=== PATIENT | male | born 1995 | race Caucasian/White ===

== ENCOUNTER 2022-07-16 16:03 | Emergency (ER) | payer BC, SELFPAY ==
[2022-07-16 16:11] VITALS: BP 141/81; PULSE 99; RESP 18; TEMP 36.4; O2SAT 99
--- NOTE | 2022-07-16 16:30 | ED.EAR ---
HPI - Ear Problem General Chief complaint: Ear Stated complaint: Ringing in right ear Time Seen by Provider: 07/16/22 16:30 Source: patient, RN notes reviewed and old records reviewed Mode of arrival: ambulatory Limitations: no limitations History of Present Illness HPI Narrative: 26 year old male who presents to [facility] [place] [facility] care with complaints of ringing in his right ear and discomfort for the past 3 days. 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 Patient denies any drainage from his ears, has not taken any OTC medications for his complaints. Patient denies any cold symptoms or any fevers. MD Complaint: ear pain and other (ringing in right ear) Location: right ear Duration: constant Discharge from ear: Reports no Treatment prior to arrival: other (wears ear plugs at work) Related Data Allergies Allergy/AdvReac Type Severity Reaction Status Date / Time No Known Allergies Allergy Verified 07/16/22 16:20 Review of Systems Review of Systems: CONSTITUTIONAL: Denies malaise, chills, sweats, or fever. EYES: Denies visual changes, redness, or discharge. ENT: Reports no rhinorrhea, congestion, sinus pain,right otalgia with tinnitus, no sore throat. CARDIOVASCULAR: Denies chest pain, palpitations, or edema. RESPIRATORY: Reports no cough.? Denies dyspnea. GASTROINTESTINAL: Denies abdominal pain, nausea, vomiting, diarrhea SKIN: Denies rash or itching. MUSCULOSKELETAL: Denies myalgia. NEUROLOGIC: Denies headache. All systems reviewed & are unremarkable except as noted in HPI and below PMFSH Social History Social History (Updated 07/18/22 @ 11:02 by Sarah Weinberg NP) Smoking status: Current some day smoker Tobacco type: cigarettes Alcohol intake: current Alcohol use details: social Substance use type: does not use Gender identity (if verbalized by the patient): Male Comments At time of signature, agree with nursing past medical, surgical, social and family history. There is no relevant family history pertinent to the presenting complaint Exam Narrative: GENERAL: Well-appearing, well-nourished, and in no acute distress. HEAD: Normocephalic EYES: PERRLA, conjunctivae clear ENT: Nares clear, turbinates edematous and erythematous, clear discharge. Mucous membranes moist. TM pearly borja with dull light reflex bilaterally;some soft wax in ear canals,, area of irritation and redness of right ear canal,no tragal tenderness. Oropharynx erythematous without lesions. Tonsils not enlarged and without exudate, no drooling, no hoarseness, no trismus, uvula midline. NECK: Supple. No lymphadenopathy CHEST: Clear to auscultation, breath sounds equal. No wheezing, rhonchi, rales, or stridor. No respiratory distress, speaks in full sentences. HEART: Regular rate and rhythm. No murmur heard. SKIN: Warm, dry, no rash. NEURO: Alert and oriented x3. PSYCH: Normal mood and affect Course Course Emergency Course: Patient is aware of diagnosis, understands and agrees to treatment plan.? Anticipatory guidance given.? Patient agrees to follow-up as directed and is aware of reasons to seek care at the emergency department. Portions of this record may have been created with voice recognition software Level of Care: Express Care Visit Vital Signs Vital signs: Vital Signs Temperature 36.4 C L 07/16/22 16:11 Pulse Rate 99 07/16/22 16:11 Respiratory Rate 18 07/16/22 16:11 Blood Pressure 141/81 H 07/16/22 16:11 Pulse Oximetry 99 07/16/22 16:11 Oxygen Delivery Room Air 07/16/22 16:11 Temperature 36.4 C L 07/16/22 16:11 Pulse Rate 99 07/16/22 16:11 Respiratory Rate 18 07/16/22 16:11 Blood Pressure 141/81 H 07/16/22 16:11 Pulse Oximetry 99 07/16/22 16:11 Oxygen Delivery Room Air 07/16/22 16:11 Reviewed Medical Decision Making Differential Diagnosis Differential Diagnosis: r
== END 2022-07-16 16:45 | disposition home or self-care (01) ==
PROVIDERS: Emergency Provider Registered Nurse
DX: H60.91 Unspecified otitis externa, right ear (principal); H93.11 Tinnitus, right ear; F17.210 Nicotine dependence, cigarettes, uncomplicated
CPT/HCPCS: 99213; G0463

== ENCOUNTER 2022-09-17 13:49 | Emergency (ER) | payer BC, SELFPAY ==
[2022-09-17 13:54] VITALS: BP 127/70; PULSE 82; RESP 16; TEMP 36.2; O2SAT 99
[2022-09-17 13:58] VITALS: BP 127/70; PULSE 82; RESP 16; TEMP 36.2; O2SAT 99
--- NOTE | 2022-09-17 14:06 | ED.BACK ---
HPI - Back Pain/Injury General Chief Complaint: Back Pain/Injury Stated Complaint: Left Side/Low Back Pain Source: patient and RN notes reviewed History of Present Illness HPI Narrative: 26 yo M presents to urgent care with complaints of intermittent left mid back pain that radiates around his left flank. Pt states this has been going on for the last 3 months after waking up one morning. Pt denies any injury or strenuous activity in the days prior. Pt states the pain is worse in the morning and improves over the course of the day. Pt denies any dysuria, abdominal pain, vomiting, fevers, chills, SOB, or chest pain. Pt has taken ibuprofen for this with minimal relief. Pt does report hx of kidney stones. Related Data Allergies Allergy/AdvReac Type Severity Reaction Status Date / Time No Known Allergies Allergy Verified 07/16/22 16:20 Review of Systems Review of Systems: Pertinent positives and pertinent negatives per HPI. [facility] Social History Social History (Updated 07/18/22 @ 11:02 by Sarah Weinberg NP) Smoking status: Current some day smoker Tobacco type: cigarettes Alcohol intake: current Alcohol use details: social Substance use type: does not use Gender identity (if verbalized by the patient): Male Comments At the time of my signature, I reviewed and agree with the nursing past medical, surgical, social, and family history. There is no relevant family history pertinent to the patient complaint. Exam Narrative: GENERAL: This is a well-nourished, well-developed patient, in no apparent distress. HEAD: normocephalic, atraumatic. EYES: Sclera clear/white. Vision is grossly intact. EARS: External ears normal, auditory canals clear and without drainage. Hearing grossly intact. NOSE: External nose normal with no obvious nasal discharge, nares without redness, no rhinorrhea. THROAT: Mucous membranes moist, posterior pharynx clear. NECK: Neck supple, non-tender without lymphadenopathy, masses or thyromegaly. CARDIOVASCULAR: Regular rate and rhythm without murmurs, gallops, or rubs. RESPIRATORY: Clear to auscultation. Breath sounds equal bilaterally. No wheezes, rales, or rhonchi. GASTROINTESTINAL: Abdomen soft, non-tender, nondistended. Bowel sounds are active. No hepato-splenomegaly, or palpable masses. No guarding. SKIN: warm, intact with no suspicious lesions or rash, good texture and turgor. NEURO: awake, alert, and oriented to person, place and time. There were no obvious focal neurologic abnormalities. EXTREMITIES: No clubbing, cyanosis, or edema. No joint tenderness, effusion, or edema noted. BACK: Left CVA tenderness. Course Course Level of Care: Express Care Visit Vital Signs Vital signs: Vital Signs Temperature 97.1 F L 09/17/22 13:54 Pulse Rate 82 09/17/22 13:54 Respiratory Rate 16 09/17/22 13:54 Blood Pressure 127/70 09/17/22 13:54 Pulse Oximetry 99 09/17/22 13:54 Oxygen Delivery Room Air 09/17/22 13:54 Temperature 97.1 F L 09/17/22 13:58 Pulse Rate 82 09/17/22 13:58 Respiratory Rate 16 09/17/22 13:58 Blood Pressure 127/70 09/17/22 13:58 Pulse Oximetry 99 09/17/22 13:58 Oxygen Delivery Room Air 09/17/22 13:58 reviewed. MDM - Back Pain/Injury MDM Narrative Medical decision making narrative: Take steroids as directed. Take muscle relaxers as directed. No driving after taking the muscle relaxers. May take a magnesium supplement such as CALM magnesium as directed. Differential Diagnosis Differential diagnosis: Likely pyelonephritis, thoracic back pain and other (Nephrolithiasis) Lab Data Attestation: I reviewed the patient's lab results. Labs: Urine Glucose Negative Reference Range: Negative Urine Bilirubin Negative Reference Range: Negative Urine Ketone Negative
== END 2022-09-17 14:41 | disposition home or self-care (01) ==
PROVIDERS: Emergency Provider Nurse Practitioner Family
DX: S29.012A Strain of muscle and tendon of back wall of thorax, initial encounter (principal); X58.XXXA Exposure to other specified factors, initial encounter
CPT/HCPCS: 81003; 99213; G0463

== ENCOUNTER 2025-03-04 08:12 | Emergency (ER) | payer OTHER, SELFPAY ==
--- NOTE | ~2025-03-04 | XR_ITS ---
Lumbar spine series Indication: Lower back pain Comparison: None Technique: 3 views lumbar spine Findings: 5 nonrib-bearing lumbar-type vertebral bodies. No acute fracture. No listhesis. Vertebral bodies normal height. Disc spaces maintained. No significant degenerative changes. SI joints congruent. Sacrum intact. IMPRESSION: No acute findings. Reviewed, dictated and finalized at location R. ROOM SUPERVISOR IMPRESSION: No acute findings.
[2025-03-04 08:20] VITALS: BP 138/78; PULSE 96; RESP 20; TEMP 36.7; O2SAT 99
--- NOTE | 2025-03-04 08:20 | ED_ITS ---
HPI - Back Pain/Injury General Chief Complaint: Back Pain/Injury Stated Complaint: Back Pain Time Seen by Provider: 03/04/25 08:25 Source: patient, RN notes reviewed and old records reviewed Mode of arrival: ambulatory Limitations: no limitations History of Present Illness HPI Narrative: 29 year old male presents to [facility] [place] [facility] care with complaints of back pain across lower back with some radiation at times to between shoulder blades. Patient reports that he initially hurt his back 2 years ago when lifting on generator, denies any known reinjury. He states that he has had intermittent episodes of back pain this time for the past 2 months. Patient reports no pain down his legs, denies any bowel or bladder dysfunction or any saddle paraesthesia. MD elicited complaint: back pain Pertinent past history: prior back pain Onset (ago): month(s) (intermittently for 2 months worse today) Similar Symptoms Previously: Yes Location: lumbar spine Exacerbating factors: movement Treatments prior to arrival: NSAIDS Related Data Allergies Allergy/AdvReac Type Severity Reaction Status Date / Time No Known Allergies Allergy Verified 03/04/25 08:26 Review of Systems Review of Systems: CONSTITUTIONAL: Denies fever, chills, or sweats. CARDIOVASCULAR: Denies chest pain, palpitations, or edema. RESPIRATORY: Denies cough or dyspnea. GASTROINTESTINAL: Denies abdominal pain, nausea, vomiting, or diarrhea. GENITOURINARY: Denies dysuria or hematuria. SKIN: Denies rash or itching. MUSCULOSKELETAL: Reports back pain across lower back. Joint pain or myalgia. NEUROLOGIC: Denies headache, numbness, or weakness. All systems reviewed & are unremarkable except as noted in HPI and below PMFSH Social History Social History Smoking status: Current some day smoker Tobacco type: cigarettes Alcohol intake: current Alcohol use details: social Substance use type: does not use Gender identity (if verbalized by the patient): Male Comments At time of signature, agree with nursing past medical, surgical, social and family history. There is no relevant family history pertinent to the presenting complaint Exam Narrative: GENERAL: Well-appearing, well-nourished, and in some acute distress. HEAD: Normocephalic, atraumatic. EYES: PERRLA and EOMI. NECK: Supple. No lymphadenopathy. CHEST: Clear to auscultation. No respiratory distress. SAO2 99% on room air HEART: Regular rate and rhythm. Distal pulses palpable and equal, cap refill <3 seconds ABDOMEN: Soft, nontender, nondistended, normal active bowel sounds, no palpable or pulsatile masses. No CVA tenderness MUSCULOSKELETAL: Normal range of motion and strength in all extremities; 5/5 strength with hip flexion and extension, dorsiflexion and extension, knee flexion and extension, plantar flexion and extension. Normal sensation in d ermatomal distributions with sensitivity to light touch and pain. No midline back tenderness to palpation.some lower back paraspinal tenderness. Transfers from lying to sitting to standing.Positive for pain with strait leg raising bilaterally. Reports no difficulty with bowel or bladder function, denies any saddle paraesthesia. SKIN: Warm, dry, no rash. No ecchymosis, erythema, open wounds to back. NEURO: No focal deficits. Alert and oriented x3. Reflexes intact. Normal gait. PSYCH: Normal mood and affect Course Course Level of Care: Express Care Visit MDM MDM Narrative Medical decision making narrative: 29 year old male presents to [facility] with pain across lower back intermittently for past 2 months worse today.X-ray of lumbar spine showing no acute findings. Patient denies no radiation of pain down legs, no saddle paraesthesia or any difficulty with bowel or bladder function. Rx sent for muscle relaxer of cyclobenzaprine and Prednisone with OTC Ibuprofen. Anticipatory guidance and reasons to seek care in ED reviewed with understanding voiced. Differential Diagnosis Differential Diagnosis: Differential diagnostic considerations for back pain?include?herniated disc, sciatica, abscess, strain/sprain, discitis, myelitis, fracture, hematoma, cauda equina, osteomyelitis, metastatic and/or primary malignancy, renal colic, pyelonephritis, AAA.? Imaging Data Attestation: I personally reviewed and interpreted this imaging study as follows: My impression: no acute findings Radiologist's impression: [facility] [employer] [place] [address] XRay Report Signed Patient: Kavon Lundy : 1995 MR#: [id number] Age: 29 Acct:[id number] Loc: [facility] ADM Date: 03/04/[address]: Ordering Physician: Sarah Weinberg APRN Date of Service: 03/04/25 Procedure(s): XR lumbar spine 2-3V Accession Number(s): [id number] cc: CUSHION MAT MAKER PHYSICIAN; Sarah Weinberg APRN~ Lumbar spine series Indication: Lower back pain Comparison: None Technique: 3 views lumbar spine Findings: 5 nonrib-bearing lumbar-type vertebral bodies. No acute fracture. No listhesis. Vertebral bodies normal height. Disc spaces maintained. No significant degenerative changes. SI joints congruent. Sacrum intact. IMPRESSION: No acute findings. Reviewed, dictated and finalized at location R. S SPECIALIST Please be advised this is a medical document. It is intended for [id number] communication. It is written in medical language and may contain unfamiliar abbreviations or verbiage. Medical documents are intended to carry relevant information, facts as evident, and the clinical opinion of the practitioner at the time of the encounter. This report may have been done utilizing a voice recognition system. Attempts pacheco ve been made to correct errors. However, there may be uncorrected grammatical, spelling, and recognition errors present. The file time of this note does not necessarily represent the time of service. Dictated By: Will Juarez MD 03/04/25 0845 Signed By: <Electronically signed by Will Juarez MD in OV> Critical Care Time Critical Care Time Critical Care Time: No Discharge Plan Discharge Clinical Impression: Strain of lumbar region Qualifiers: Encounter type: initial encounter Qualified Code(s): S39.012A - Strain of mu scle, fascia and tendon of lower back, initial encounter Patient Disposition: Home Condition: Stable Instructions: Antibiotic Form, Acute Low Back Pain (ED) Additional Instructions: Ice and heat to the area for 20-30 minutes Gentle stretching exercises Gentle massage Caution with lifting, bending, stooping, twisting Avoid pushing, pulling Prednisone 20 mg twice daily with food or may take 40 mg in a.m. with food take muscle relaxants as directed--caution drowsiness and no driving or alcohol Anti-inflammatory medicine as directed--take with food Such as ibuprofen 600 mg up to 4 times daily He may take the muscle relaxant and anti-inflammatory at the same time Follow-up with your PCP if not improving in 5-7 days If your symptoms persist, change or worsen significantly before you can contact your personal physician then please, without delay, go to the emergency department for further evaluation. Follow-up with PCP in 7-10 days or sooner if needed Follow up with PCP soon in regards to your blood pressure which is elevated above threshold for referral. Blood pressure above 120/80 may indicate pre- hypertension. 138 over 78 Patient Language: Lebanese Prescriptions: New prednisone 20 mg tablet 20 mg PO BID 5 Days Qty: 10 0RF Rx Instructions: take with food cyclobenzaprine 10 mg tablet 10 mg PO TID PRN (Reason: muscle spasm) Qty: 20 0RF Rx Instructions: no driving or operating machinery while taking this medication and absolutely no alcohol Follow-up/Referrals: PHYSICIAN,CUSHION MAT MAKER [Primary Care Provider, Internal Medicine] Stand Alone Forms: Work/School Release IP Time of Disposition: 08:58 Quality [place] Coma Scale Eyes: Open Verbal: Oriented and Alert Motor: Follows Commands [place] Coma Total Score: 15
--- OUTSIDE RECORDS SUMMARY | 2025-03-04 08:20 | XMS_ITS | Clinical Summary ---
Author Organization [facility] Address [address] [place] [address] Care Team Providers Care Floor Space Allocator Name Role Phone No, Physician Primary Care Provider [phone] Allergies No known active allergies Active Problems Problem Noted Date Diagnosed Date Chest pain 09/28/2010 Social History Tobacco Use Types Packs/Day Years Used Date Smoking Tobacco: Never Assessed Personal Safety Answer Date Recorded Have you ever been in or are you currently in a harmful physical or emotional relationship or is someone making you feel afraid or unsafe? 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 Gender Identity Not on file Sexual Orientation Not on file Last Filed Vital Signs Vital Sign Reading Time Taken Comments Blood Pressure 115/80 04/22/2024 3:45 AM FLIGHT CONTROLS ENGINEER Pulse 87 04/22/2024 3:45 AM FLIGHT CONTROLS ENGINEER Temperature 36.6 C (97.8 F) 04/21/2024 11:26 PM FLIGHT CONTROLS ENGINEER Respiratory Rate 28 04/22/2024 3:45 AM FLIGHT CONTROLS ENGINEER Oxygen Saturation 96% 04/22/2024 3:45 AM FLIGHT CONTROLS ENGINEER Inhaled Oxygen Concentration - - Weight 108.9 kg (240 lb) 04/21/2024 11:26 PM FLIGHT CONTROLS ENGINEER Height 175.3 cm (5' 9) 04/21/2024 11:26 PM FLIGHT CONTROLS ENGINEER Body Mass Index 35.44 04/21/2024 11:26 PM FLIGHT CONTROLS ENGINEER Plan of Treatment Health Maintenance Due Date Last Done Comments Depression Screening 1995 Hepatitis C Screening 1995 DTaP/Tdap/Td Vaccine (1 - Tdap) 12/22/2006 Varicella Vaccines (1 of 2 - 13+ 2-dose series) 12/22/2008 Hepatitis B Screening 12/22/2013 Regular Well Visit/Exam 18-64 12/22/2013 HPV Vaccines (1 - 3-dose SCD M series) 12/22/2022 Influenza Vaccine (#1) 2024 Pneumococcal vaccine <65 Aged Out No longer eligible based on patient's age to complete this topic Insurance [facility] Care Teams Floor Space Allocator Relationship Specialty Start Date End Date No, Physician PCP - General 04/22/24
== END 2025-03-04 09:00 | disposition home or self-care (01) ==
PROVIDERS: Emergency Provider Registered Nurse
DX: S39.012A Strain of muscle, fascia and tendon of lower back, initial encounter (principal); X58.XXXA Exposure to other specified factors, initial encounter; F17.210 Nicotine dependence, cigarettes, uncomplicated
CPT/HCPCS: 72100; 99213; G0463